=== PATIENT | male | born 1970 | race Caucasian/White ===

== ENCOUNTER 2016-12-23 21:04 | Emergency (ER) | payer BC ==
[~2016-12-23] VITALS: Ht 162.6 cm; Wt 77.1 kg
[2016-12-23 21:58] LABS: ABSOLUTE BASOPHIL COUNT 0 /CUMM (0.0-0.2); ABSOLUTE EOSINOPHIL COUNT 0.4 /CUMM (0.0-0.7); ABSOLUTE GRANULOCYTE CT 6.6 /CUMM (1.4-6.5); ABSOLUTE LYMPH COUNT 1.9 /CUMM (1.2-3.4); ABSOLUTE MONOCYTE COUNT 0.6 /CUMM (0.10-0.60); BASOPHIL % 0.4 % (0.0-2.0); EOSINOPHIL % 3.9 % (0-5); GRANULOCYTE % 69.8 % (42.2-75.2); HEMATOCRIT 43.3 % (42-52); MEAN CORPUSCULAR HGB 32.4 PG (27.0-31.0); MEAN CORPUSCULAR HGB CONC 33.3 G/DL (33.0-37.0); MEAN CORPUSCULAR VOLUME 97.1 FL (80.0-94.0); MEAN PLATELET VOLUME 8.2 FL (7.4-10.4); PLATELET COUNT 277 /CUMM (130-400); RBC DISTRIBUTION WIDTH 13.8 % (11.5-14.5); RED BLOOD CELL CT 4.46 /CUMM (4.70-6.10); WHITE BLOOD CELL COUNT 9.4 /CUMM (4.8-10.8)
[2016-12-23 22:55] VITALS: BP 131/94
[2016-12-23] MEDS ORDERED: BACITRACIN28.4 GM TOP (22:55)
--- NOTE | 2016-12-23 22:56 | ED HAND/WRIST INJURY COMPLAINT ---
History of Present Illness General Chief Complaint: General Adult Stated Complaint: "LT THUMB, MIDDLE FINGER & EAR ALLEGRIC REACTION?" Source: patient Exam Limitations: poor historian Vital Signs & Intake/Output Vital Signs & Intake/Output Vital Signs Date Time Temp Pulse Resp B/P B/P Pulse O2 O2 Flow FiO2 Mean Ox Delivery Rate 12/23 2255 97.3 99 18 131/94 99 Room Air 12/239 Room Air 12/23 2111 97.2 106 18 134/96 98 Room Air ED Intake and Output 12/24 0000 12/23 1200 Intake Total Output Total Balance Patient 170 lb Weight Weight Reported by Patient Measurement Method Allergies Coded Allergies: No Known Allergies (12/23/16) Triage Note: PT TO TRIAGE WITH ?INFECTION TO LEFT MIDDLE FINGER x2DAYS, AND SWELLING TO LEFT EAR xMONTH (PT UNSURE OF INJURY). NO OTHER COMPLAINTS. VSS. PT AFEBRILE IN TRIAGE. Triage Nurses Notes Reviewed? yes HPI: 46M COMPLAINTS OF LEFT FIRST AND THIRD FINGER ERYTHEMA AND PAIN AFTER PICKING AT HIS CUTICLES. ALSO NOTES LEFT EAR SWELLING FOR SEVERAL MONTHS. NO FEVER, CHILLS, NAUSEA, VOMITING, DISCHARGE, CHEST PAIN, SOB, DIARRHEA, DYSURIA. (AKANKSHA VIGIL MD) Reconcile Medications Bacitracin 500 UNIT/GRAM OINT...G. 1 VY TOP BID FINGER CELLULITIS apply to affected area(s) (MELINDA ALAN,DAWN) Past History Travel History Traveled to [place] past 21 day No Medical History Any Pertinent Medical History? see below for history Psychiatric: ADHD Surgical History Surgical History: non-contributory Psychosocial History What is your primary language Azeri Tobacco Use: Current Daily Use Daily Tobacco Use Amount/Type: => 5 Cigarettes daily Family History Hx Contributory? No (AKANKSHA VIGIL MD) Review of Systems Review of Systems Constitutional: Reports: no symptoms. EENTM: Reports: see HPI. Respiratory: Reports: no symptoms. Cardiovascular: Reports: no symptoms. GI: Reports: no symptoms. Genitourinary: Reports: no symptoms. Musculoskeletal: Reports: see HPI. Skin: Reports: no symptoms. Neurological/Psychological: Reports: no symptoms. Hematologic/Endocrine: Reports: no symptoms. Immunologic/Allergic: Reports: no symptoms. All Other Systems: Reviewed and Negative (AKANKSHA VIGIL MD) Physical Exam Physical Exam General Appearance: well developed/nourished, no apparent distress Head: atraumatic, normal appearance Eyes: Bilateral: normal appearance. Ears, Nose, Throat: LEFT EAR EDEMATOUS WITHOUT TENDERNESS OR ERYTHEMA Neck: normal inspection, supple Cardiovascular/Respiratory: normal breath sounds, normal peripheral pulses, regular rate/rhythm Back: normal inspection, normal range of motion Shoulder Left: normal range of motion, normal inspection Shoulder Right: normal range of motion, normal inspection Elbow Left: normal range of motion, normal inspection Elbow Right: normal range of motion, normal inspection Forearm Left: normal range of motion, normal inspection Forearm Right: normal range of motion, normal inspection Wrist Left: normal range of motion, normal inspection Wrist Right: normal range of motion, mass Hand Left: infection, tender, 1st finger, 3rd finger Hand Right: normal inspection, normal range of motion (YARITZA ALAN,AKANKSHA) Progress Differential Diagnosis: abscess, cellulitis, contusion, compartment syndrome, dislocation, fracture, paronychia, sprain, tenosynovitis Plan of Care: Orders Procedure Date/time Status LACTIC ACID 12/25 43 Active BLOOD CULTURE 12/24 2151 Active BLOOD CULTURE 12/24 2143 Active LACTIC ACID 12/24 2143 Complete COMPREHENSIVE METABOLIC PANEL 12/24 2143 Complete CBC WITHOUT DIFFERENTIAL 12/24 2143 Complete Laboratory Tests 12/23/162145: Anion Gap 13, Estimated GFR > 60, BUN/Creatinine Ratio 18.9, Glucose 81, Lactic Acid 1.4, Calcium 9.3, Total Bilirubin 0.5, AST 27, ALT 27, Alkaline Phosphatase 103, Total Protein 7.5, Albumin 4.5, Globulin 3.0, Albumin/Globulin Ratio 1.5, CBC w Diff NO MAN DIFF REQ, RBC 4.46 L, MCV 97.1 H, MCH 32.4 H, RDW 13.8, MPV 8.2, Gran % 69.8, Lymphocytes % 19.8 L, Monocytes % 6.1, Eosinophils % 3.9, Basophils % 0.4, Absolute Granulocytes 6.6 H, Absolute Lymphocytes 1.9, Absolute Monocytes 0.6, Absolute Eosinophils 0.4, Absolute Basophils 0, PUBS MCHC 33.3 Microbiology 12/23 2199 BLOOD: Blood Culture - RECD 12/23 2145 BLOOD: Blood Culture - RECD NORMAL CBC, CMP, LACTATE LEVEL. BLOOD CULTURES DRAWN. AFEBRILE. NO EVIDENCE OF SYSTEMIC INFECTION. LEFT EAR IS LIKELY CHRONIC SWELLING DUE TO REPEATED TRAUMA. LEFT HAND HAS SUPERFICIAL INFECTIOUS WOUNDS WHICH MAY BE TREATED WITH TOPICAL ANTIBIOTIC AND DRESSING. (YARITZA ALAN,AKANKSHA) Departure Departure Time of Disposition: 2251 Disposition: HOME OR SELF CARE Condition: Stable Clinical Impression Primary Impression: Cellulitis of left hand Secondary Impressions: Cauliflower ear, left ear Referrals: TRAY ALAN,BUTCH Leigh (PCP/Family) VERONIKA ALAN,GUADALUPE BRADSHAW MD,JOE Additional Instructions: KEEP FINGERS CLEAN AND DRY. WASH HANDS TWICE DAILY, FOLLOWED BY BACITRACIN OINTMENT AND A BANDAGE. RETURN TO ED IF FEVER OR WORSENING OF FINGER ERYTHEMA. FOLLOW UP WITH ENT AND PLASTIC SURGERY FOR CAULIFLOWER EAR. Departure Forms: Customer Survey General Discharge Information Prescriptions: Current Visit Scripts Bacitracin 1 VY TOP BID #15 GM apply to affected area(s) (YARITZA ALAN,AKANKSHA) Resident Co-Sign Statement Statement: ED Attending supervision documentation- [] I saw and evaluated the patient. I have also reviewed all the pertinent lab results and diagnostic results. I agree with the findings and the plan of care as documented in the Resident's documentation. [X] I have reviewed the ED Record and agree with the Resident's documentation. [] Additions or exceptions (if any) to the Resident's note and plan are summarized below: [] (MELINDA ALAN,DAWN)
== END 2016-12-23 23:06 ==
LOC: ERH 21:04
PROVIDERS: Internal Medicine
DX: L03.114 Cellulitis of left upper limb (principal); M95.12 Cauliflower ear, left ear
CPT/HCPCS: 87040

== ENCOUNTER 2016-12-25 08:23 | Emergency (ER) | payer BC ==
[~2016-12-25] VITALS: Ht 162.6 cm; Wt 81.6 kg
[~2016-12-25 08:23] MED LIST: BACITRACIN28.4 GM TOP
[2016-12-25 08:32] VITALS: BP 132/88
[2016-12-25] MEDS ORDERED: DEXTROAMP-AMPHE30 MG PO (09:09)
[2016-12-25] MEDS ORDERED: CLONAZEPAM1 M2 PO (09:10)
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
[2016-12-25 09:41] LABS: ABSOLUTE BASOPHIL COUNT 0.1 /CUMM (0.0-0.2); ABSOLUTE EOSINOPHIL COUNT 0.3 /CUMM (0.0-0.7); ABSOLUTE GRANULOCYTE CT 5.5 /CUMM (1.4-6.5); ABSOLUTE LYMPH COUNT 1.4 /CUMM (1.2-3.4); ABSOLUTE MONOCYTE COUNT 0.5 /CUMM (0.10-0.60); BASOPHIL % 0.7 % (0.0-2.0); EOSINOPHIL % 3.7 % (0-5); HEMATOCRIT 42.1 % (42-52); MEAN CORPUSCULAR HGB CONC 33.6 G/DL (33.0-37.0); MEAN CORPUSCULAR VOLUME 98.3 FL (80.0-94.0); MEAN PLATELET VOLUME 8.9 FL (7.4-10.4); PLATELET COUNT 257 /CUMM (130-400); RBC DISTRIBUTION WIDTH 13.9 % (11.5-14.5); RED BLOOD CELL CT 4.28 /CUMM (4.70-6.10); WHITE BLOOD CELL COUNT 7.8 /CUMM (4.8-10.8)
== END 2016-12-25 11:30 ==
LOC: ERH 08:23
PROVIDERS: Emergency Medicine
DX: S00.432A Contusion of left ear, initial encounter (principal); R42 Dizziness and giddiness; F32.9 Major depressive disorder, single episode, unspecified; R20.2 Paresthesia of skin; R41.3 Other amnesia; R60.9 Edema, unspecified; X58.XXXA Exposure to other specified factors, initial encounter